=== PATIENT | female | born 1955 | race Caucasian/White ===

== ENCOUNTER 2025-07-24 10:30 | Emergency (ER) | payer MEDICARE, OTHER ==
[~2025-07-24] VITALS: Ht 177.8 cm; Wt 47.6 kg
[2025-07-24] MEDS: IV NORMAL SALINE 1000 ML BAG IV ONE (10:54)
[2025-07-24 11:00] LABS: PLATELET COUNT (AUTO) 154 K/uL (179-408); RED BLOOD CELL COUNT(AUTO) 4.87 MIL/uL (3.63-4.92); RED CELL DISTRIBUTION WIDTH 14.4 % (12.3-17.7); WHITE BLOOD COUNT (AUTO) 13.7 K/uL (3.8-11.8)
[2025-07-24 11:09] LABS: ETHANOL < 3 MG/DL (0-10)
[2025-07-24 11:18] LABS: LACTIC ACID 2.1 mmol/L (0.4-2.0)
[2025-07-24] MEDS ORDERED: DEXAMETHASONE SOD PHOSPHATE 10 MG INJ ONE (11:59)
[2025-07-24] MEDS ORDERED: ACETAMINOPHEN 500 MG TABLET ONE (11:59)
[2025-07-24] MEDS: ACETAMINOPHEN 500 MG TABLET PO ONE (12:06)
[2025-07-24] MEDS: DEXAMETHASONE SOD PHOSPHATE 4 MG INJ IV ONE (12:06)
[2025-07-24 12:17] LABS: ASPARTATE AMINOTRANSFERASE 42 U/L (15-37); CREATININE 0.8 mg/dL (0.6-1.3); SODIUM SERUM 144 mmol/L (136-145); TOTAL PROTEIN, SERUM 7.8 g/dL (6.4-8.2); UREA NITROGEN, BLOOD 19 mg/dL (7-18)
[2025-07-24 13:13] LABS: *BILIRUBIN,URIN NEGATIVE (NEGATIVE); *BLOOD, URINE 2+ (NEGATIVE); *CLARITY,URINE CLEAR (CLEAR); *COLOR,URINE YELLOW (YELLOW); *KETONES,URINE 4+ (NEGATIVE); *PROTEIN,URINE 1+ (NEGATIVE); *UROBILINOGEN,URINE 2.0 E.U./dl (NORMAL); LEUKOCYTE ESTERASE ,URINE 1+ (NEGATIVE); NITRITE, URINE POSITIVE (NEGATIVE); UGLUCOSE NEGATIVE (NEGATIVE)
[2025-07-24 13:20] LABS: *AMPHETAMINE, URINE NEGATIVE (NEGATIVE); *BARBITURATE, URINE NEGATIVE (NEGATIVE); *BENZODIAZEPINE, URINE NEGATIVE (NEGATIVE); *CANNABINOID, URINE NEGATIVE (NEGATIVE); *COCCAINE, URINE NEGATIVE (NEGATIVE); *OPIATE, URINE NEGATIVE (NEGATIVE); *PHENCYCLIDINE SCREEN,URINE NEGATIVE (NEGATIVE); FENTANYL, URINE NEGATIVE (NEGATIVE)
[2025-07-24 13:21] LABS: SQUAMOUS EPITHELIAL CELL,UR FEW /HPF (NONE SEEN)
[2025-07-24 14:00] VITALS: BP 124/62; O2SAT 91
== END 2025-07-24 15:46 | disposition short-term general hospital (02) ==
LOC: ER 10:30 → EDBD 10:30 → ER 15:46
DX: R56.9 Unspecified convulsions (principal); R00.0 Tachycardia, unspecified; E86.0 Dehydration; E87.20 Acidosis, unspecified; G93.6 Cerebral edema; I24.89 Other forms of acute ischemic heart disease; Z79.52 Long term (current) use of systemic steroids; Z91.040 Latex allergy status; R74.01 Elevation of levels of liver transaminase levels
CPT/HCPCS: 36415; 70450; 71045; 72125; 83605; 84443; 84484; 85025; 85730; 87040; 87086; A4606; A4663; A9150; G0480; J1100; J1953; J7040